=== PATIENT | male | born 1975 | race African-American/Black ===

== ENCOUNTER 2018-07-08 02:46 | Emergency (ER) | payer BC ==
[2018-07-08 03:19] VITALS: BP 150/76; PULSE 76; TEMP 98.8; BMI 31.5
--- NOTE | 2018-07-08 04:24 | PDOC ---
History of Present Illness - General Chief Complaint: Choking Sensation Stated Complaint: PAIN WHEN SWALLOWING Time Seen by Provider: 07/08/18 03:50 History Source: Patient Exam Limitations: No Limitations - History of Present Illness Initial Comments: 07/08/18 04:07 HISTORY OF PRESENT ILLNESS: 42-year-old male with past medical history of NIDDM and A. fib (not on AC) who presents emergency Department with foreign-body sensation in his throat after vomiting tonight. Patient states he had shrimp for dinner last night when he laid down began to experience some nausea and had one episode of vomiting. After vomiting several persistent feeling of food "stuck in his throat." The patient is been unable to relieve sensation by drinking water. Patient denies any shortness of breath or difficulty breathing. No recent travel or sick contacts. PAST MEDICAL HISTORY: see HPI SURGICAL HISTORY: Denies ALLERGIES: No known drug allergies REVIEW OF SYSTEMS General/Constitutional: Denies fever or chills. Denies weakness, weight change. HEENT: Denies change in vision. Denies ear pain or discharge. Denies sore throat. Cardiovascular: Denies chest pain or shortness of breath. Respiratory: Denies cough, wheezing, or hemoptysis. Gastrointestinal: Denies nausea, diarrhea or constipation. Denies rectal bleeding. Food bolus sensation in throat. Genitourinary: Denies dysuria, frequency, or change in urination. Musculoskeletal: Denies joint or muscle swelling or pain. Denies neck or back pain. Skin and breasts: Denies rash or easy bruising. Neurologic: Denies headache, vertigo, loss of consciousness, or loss of sensation. Psychiatric: Denies depression or anxiety. Endocrine: Denies increased thirst. Denies abnormal weight change. Hematologic/Lymphatic: Denies anemia, easy bleeding, or history of blood clots. Allergic/Immunologic: Denies hives or skin allergy. Denies latex allergy. PHYSICAL EXAM General Appearance: Well-appearing, appropriately dressed. No apparent distress , no intoxication. HEENT: EOMI, PERRLA, normal ENT inspection, normal voice, TMs normal, pharynx normal. No conjunctival pallor. No photophobia, scleral icterus. Neck: Supple. Trachea midline. No tenderness, rigidity, carotid bruit, stridor , lymphadenopathy, or thyromegaly. Respiratory/Chest: Lungs CTAB. No shortness of breath, chest tenderness, respiratory distress, accessory muscle use. No crackles, rales, rhonchi, stridor , wheezing, dullness Cardiovascular: RRR. S1, S2. No JVD, murmur, bradycardia, tachycardia. Vascular Pulses: Dorsalis-Pedis (R): 2+, Dorsalis-Pedis (L): 2+ Gastrointestinal/Abdominal: Normal bowel sounds. Abdomen soft, non-distended. No tenderness or rebound tenderness. No organomegaly, pulsatile mass, guarding, hernia, hepatomegaly, splenomegaly. Lymphatic: No adenopathy, tenderness. Musculoskeletal/Extremities: Normal inspection. FROM of all extremities, normal capillary refill. Pelvis Stable. No CVA tenderness. No tenderness to extremities, pedal edema, swelling, erythema or deformity. Integumentary: Appropriate color, dry, warm. No cyanosis, erythema, jaundice or rash Neurologic: refinery technician II-XII intact. Fully oriented, alert. Appropriate mood/affect. Motor strength 5/5. No appreciable EOM palsy, facial droop or sensory deficit. Past History - Past Medical History Allergies/Adverse Reactions: Allergies Allergy/AdvReac Type Severity Reaction Status Date / Time No Known Allergies Allergy Verified 07/08/18 03:06 - Suicide/Smoking/Psychosocial Hx Smoking History: Never smoked Have you smoked in the past 12 months: No Information on smoking cessation initiated: No Hx Alcohol Use: No Drug/Substance Use Hx: No *Physical Exam - Vital Signs Last Vital Signs Temp Pulse Resp BP Pulse Ox 98.8 F 76 20 150/76 95 07/08/18 03:06 07/08/18 03:06 07/08/18 03:06 07/08/18 03:06 07/08/18 03:06 Medical Decision Making - Medical Decision Making 07/08/18 04:28 A/P: 42-year-old male with food bolus sensation in throat Oropharynx clear without erythema or exudates. No drooling noted No stridor auscultated No change in voice Lungs clear to auscultation bilaterally CAT scan of the soft tissues of the neck to rule outs retained foreign bodies, reassess 07/08/18 06:05 CT as read by imaging precision dyer: No radiodense foreign bodies. Unremarkable tonsillar fossa, epiglottitis, thyroid gland and parotid and submandibular glands. Muco-periosteal thickening paranasal sinuses. Mastoid air cells clear. Results a CT relate the patient. Patient is able to swallow without any difficulties. I will discharge the patient home with recommendation for ENT follow-up. *DC/Admit/Observation/Transfer Diagnosis at time of Disposition: Foreign body sensation in throat - Discharge Dispostion Disposition: HOME Condition at time of disposition: Stable Decision to Admit order: No - Referrals Referrals: Chele Degroot MD [Staff Physician] - - Patient Instructions Additional Instructions: You've been given the phone number for Dr. Degroot who is an ENT specialist. If he continued to experience foreign-body sensation call for an appointment. Return to the emergency department [place]. Shortness of breath, inability to swallow, severe throat pain or any other concerns. - Post Discharge Activity
== END 2018-07-08 06:24 | disposition home or self-care (01) ==
LOC: JER 02:46
DX: R09.89 Other specified symptoms and signs involving the circulatory and respiratory systems (principal); I48.91 Unspecified atrial fibrillation; E11.9 Type 2 diabetes mellitus without complications; Z79.84 Long term (current) use of oral hypoglycemic drugs
CPT/HCPCS: 70490-TC; 99282-25

== ENCOUNTER 2020-04-05 01:38 | Inpatient (IN) | payer BC ==
[2020-04-05] MEDS ORDERED: SODIUM CHLORIDE 1,000 ML IV STA (02:07)
[2020-04-05 02:15] VITALS: BMI 31.5
--- NOTE | 2020-04-05 02:17 | PDOC ---
Attending Attestation - Resident Resident Name: Luis Hernandez - ED Attending Attestation I have performed the following: I have examined & evaluated the patient, The case was reviewed & discussed with the resident, I agree w/resident's findings & plan - HPI HPI: 04/05/20 02:29 Pt comes with rapid heart beat. Describes a funny feeling in his chest/heart. States that he knew he may be in rapid afib, as he was almost 2 years ago, when he was admitted to [facility]. At that time, he states he reverted to NSR in a day and a half with meds and rest on the floors. Pt considered getting a cardiac ablation. but decided against it. Pt has no other complaints at this time. He just drove down from [place]. - Physicial Exam PE: 04/05/20 02:29 Normal exam; agree with resident exam Only irregularly irreg rate. 04/05/20 04:59 luings clear; abd soft NT ND normal extremities; no edema no flank pain. - Medical Decision Making 04/05/20 03:14 CPK is elevated; Glc is elevated. 04/05/20 03:26 trop is normal 04/05/20 23:43 Pt will be admitted to [facility] for uncontrolled AFIB Discharge - Discharge Information Problems reviewed: Yes Clinical Impression/Diagnosis: Atrial fibrillation with RVR Condition: Improved - Follow up/Referral - Patient Discharge Instructions - Post Discharge Activity
--- NOTE | 2020-04-05 02:17 | PDOC ---
History of Present Illness - General Stated Complaint: ACTIVE AFIB Time Seen by Provider: 04/05/20 01:59 History Source: Patient Exam Limitations: No Limitations - History of Present Illness Initial Comments: 04/05/20 02:12 44 yo male pmh HTN, NIDDM, A fib (not on AC) presents to the ED for A fib. Pt states he felt chest palpitations today, checked his heart rate and noted it to be irregular, up to 130 at home, took 100 mg Metoprolol tonight (usually night time dose is 50 mg). Pt states he went into rapid afib 2 years ago, symptoms today are similar to that episode. States he has been drinking a lot o caffeine, alcohol, lack of sleep and increased stress over the last 1 week. Pt denies chest pain, SOB, abdominal pain, changes in bowel or bladder habits, F/C/N/V, recent travel, calf tenderness, sick contacts. Past History - Medical History Allergies/Adverse Reactions: Allergies Allergy/AdvReac Type Severity Reaction Status Date / Time No Known Allergies Allergy Verified 07/08/18 03:06 Home Medications: Ambulatory Orders Empagliflozin [Jardiance] 25 mg PO DAILY 04/05/20 Glimepiride 2 mg PO DAILY 04/05/20 Lisinopril 20 mg PO DAILY 04/05/20 Metformin HCl [Glucophage] 1,000 mg PO BID 04/05/20 Metoprolol Tartrate 50 mg PO BID 04/05/20 Nebivolol HCl [Bystolic] 10 mg PO DAILY 04/05/20 COPD: No Diabetes: Yes HTN: Yes - Immunization History Immunization Up to Date: Yes - Psycho-Social/Smoking History Smoking History: Never smoked Have you smoked in the past 12 months: No Review of Systems - Review of Systems Constitutional: Yes: Symptoms Reported HEENTM: Yes: Symptoms Reported Respiratory: Yes: Symptoms reported Cardiac (ROS): Yes: Symptoms Reported ABD/GI: Yes: Symptoms Reported : Yes: Symptoms Reported Musculoskeletal: Yes: Symptoms Reported Integumentary: Yes: Symptoms Reported Neurological: Yes: Symptoms reported *Physical Exam - Physical Exam General Appearance: Yes: Nourished, Appropriately Dressed. No: Apparent Distress HEENT: positive: EOMI Neck: positive: Supple. negative: Carotid bruit Respiratory/Chest: positive: Lungs Clear, Normal Breath Sounds. negative: Resp iratory Distress, Accessory Muscle Use, Rapid RR, Crackles, Rales, Rhonchi, Stridor, Wheezing Cardiovascular: positive: S1, S2, Irregularly Irregular. negative: Edema, JVD, Murmur Vascular Pulses: Dorsalis-Pedis (R): 4+, Doralis-Pedis (L): 4+ Gastrointestinal/Abdominal: positive: Flat, Soft. negative: Pulsatile Mass, Distended, Guarding, Rebound, Tenderness Musculoskeletal: negative: CVA Tenderness Extremity: positive: Normal Capillary Refill, Normal Inspection, Normal Range of Motion Integumentary: positive: Normal Color, Dry, Warm Neurologic: positive: Fully Oriented, Alert, Normal Mood/Affect, Normal Response ED Treatment Course - LABORATORY CBC & Chemistry Diagram: 04/05/20 02:11 04/05/20 02:17 - RADIOLOGY Radiology Studies Ordered: Category Date Time Status CHEST X-RAY PORTABLE* [RAD] Stat Radiology 04/05/20 02:06 Ordered Medical Decision Making - Medical Decision Making 04/05/20 02:17 44 yo male pmh HTN, NIDDM, A fib (not on AC) presents to the ED for A fib. Pt states he felt chest palpitations today, checked his heart rate and noted it to be irregular, up to 130 at home, took 100 mg Metoprolol tonight (usually night time dose is 50 mg). Pt states he went into rapid afib 2 years ago, symptoms today are similar to that episode. States he has been drinking a lot o caffeine, alcohol, lack of sleep and increased stress over the last 1 week. Pt denies chest pain, SOB, abdominal pain, changes in bowel or bladder habits, F/C/N/V, recent travel, calf tenderness, sick contacts. vitals stable, show irreg irreg, up to 120 BPM Will do cardiac work up including labs , EKG, CXR and treatment Fluids given, will reassess and give Metorpolol IV if rate is not controlled No improvement made after fluids. Pt given 5 mg push of metoprolol Pt to be admitted for continued cardiac monitoring and and treatment Labs WNL including trop Pt accepted for admission Discharge - Discharge Information Problems reviewed: Yes Clinical Impression/Diagnosis: Atrial fibrillation with RVR - Admission Yes - Follow up/Referral Referrals: ON STAFF,NOT [Primary Care Provider] - - Patient Discharge Instructions - Post Discharge Activity
[2020-04-05 02:30] LABS: BASO % 0.8 % (0-2.0); LYMPH % 32.1 % (8-40); MCH 29.6 pg (25.7-33.7); MCHC 33.3 g/dl (32.0-35.9); MEAN CELL VOLUME 88.7 fl (80-96); MONO % 7.2 % (3.8-10.2); NEUT % 58.9 % (42.8-82.8); PLATELET COUNT 209 K/MM3 (134-434); RBC 4.73 M/mm3 (4.00-5.60); RDW 13.4 % (11.9-15.9); WHITE BLOOD COUNT 9.1 K/mm3 (4.0-10.0)
[2020-04-05 02:57] LABS: ALBUMIN 4.4 g/dl (3.4-5.0); BILIRUBIN,TOTAL 0.6 mg/dL (0.2-1); BLOOD UREA NITROGEN 24.4 mg/dL (7-18); CALCIUM 9.6 mg/dL (8.5-10.1); CREATININE 1.2 mg/dL (0.55-1.3); MAGNESIUM 2.1 mg/dL (1.8-2.4); POTASSIUM 4.6 mmol/L (3.5-5.1); TOT PROT 7.8 g/dl (6.4-8.2)
[2020-04-05] MEDS ORDERED: METOPROLOL TARTRATE 5 MG/5 ML VIAL IVPUSH ONE (03:23)
[2020-04-05] MEDS ORDERED: METOPROLOL TARTRATE 5 MG/5 ML VIAL ONE (03:28)
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
[2020-04-05] MEDS: INSULIN SLIDING SCALE (NOVOLOG) 1 VIAL SQ SCH ×2 (08:25→13:26)
--- NOTE | 2020-04-05 09:12 | PN ---
Teaching Attending Note Name of Resident: Tanner Degroot ATTENDING PHYSICIAN STATEMENT I saw and evaluated the patient. I reviewed the resident's note and discussed the case with the resident. I agree with the resident's findings and plan as documented. SUBJECTIVE: Patient is a 44yom with Pmhx of NIDDM, HTN, and Paroxysmal atrial fibrillation (Not on AC) who presented to ED. for having chest pressure and jitteriness. As per patient he is on lopressor 50mg at home but took 100mg last night after he felt that he was in atrial fibrillation which did not solve his problem . Had a similar episode 2yrs ago. OBJECTIVE: Vital Signs Temperature 98.6 F 04/05/20 05:59 Pulse Rate 80 04/05/20 05:59 Respiratory Rate 18 04/05/20 05:59 Blood Pressure 119/74 04/05/20 05:59 O2 Sat by Pulse Oximetry (%) 98 04/05/20 05:59 PE: per resident's note CBCD WBC 9.1 K/mm3 (4.0-10.0) 04/05/20 02:11 RBC 4.73 M/mm3 (4.00-5.60) 04/05/20 02:11 Hgb 14.0 GM/dL (11.7-16.9) 04/05/20 02:11 Hct 42.0 % (35.4-49) 04/05/20 02:11 MCV 88.7 fl (80-96) 04/05/20 02:11 MCHC 33.3 g/dl (32.0-35.9) 04/05/20 02:11 RDW 13.4 % (11.9-15.9) 04/05/20 02:11 Plt Count 209 K/MM3 (134-434) 04/05/20 02:11 MPV 9.0 fl (7.5-11.1) 04/05/20 02:11 CMP Sodium 137 mmol/L (136-145) 04/05/20 02:17 Potassium 4.6 mmol/L (3.5-5.1) 04/05/20 02:17 Chloride 101 mmol/L (98-107) 04/05/20 02:17 Carbon Dioxide 30 mmol/L (21-32) 04/05/20 02:17 Anion Gap 6 MMOL/L (8-16) L 04/05/20 02:17 BUN 24.4 mg/dL (7-18) H 04/05/20 02:17 Creatinine 1.2 mg/dL (0.55-1.3) 04/05/20 02:17 Random Glucose 307 mg/dL (74-106) H 04/05/20 02:17 Calcium 9.6 mg/dL (8.5-10.1) 04/05/20 02:17 Total Bilirubin 0.6 mg/dL (0.2-1) 04/05/20 02:17 AST 32 U/L (15-37) 04/05/20 02:17 ALT 91 U/L (13-61) H 04/05/20 02:17 Alkaline Phosphatase 75 U/L (45-117) 04/05/20 02:17 Total Protein 7.8 g/dl (6.4-8.2) 04/05/20 02:17 Albumin 4.4 g/dl (3.4-5.0) 04/05/20 02:17 CARDIAC ENZYMES Creatine Kinase 528 U/L (26-308) H 04/05/20 02:17 Troponin I 0.02 ng/ml (0.00-0.05) 04/05/20 02:17 Current Medications Generic Name Dose Route Start Last Admin Trade Name Mary PRN Reason Stop Dose Admin Apixaban 5 mg 04/05/20 10:00 Eliquis - PO BID [facility] Insulin Aspart 1 vial 04/05/20 07:00 04/05/20 08:25 Novolog Vial Sliding Scale - SQ 4 unit ACHS [facility] Administration Protocol Lisinopril 20 mg 04/05/20 10:00 Prinivil PO DAILY [facility] Metoprolol Tartrate 50 mg 04/05/20 10:00 Lopressor - PO BID [facility] Nebivolol 10 mg 04/05/20 10:00 Bystolic - PO DAILY [facility] Home Medications Medication Instructions Recorded Empagliflozin [Jardiance] 25 mg PO DAILY 04/05/20 Glimepiride 2 mg PO DAILY 04/05/20 Lisinopril 20 mg PO DAILY 04/05/20 Metformin HCl [Glucophage] 1,000 mg PO BID 04/05/20 Metoprolol Tartrate 50 mg PO BID 04/05/20 Nebivolol HCl [Bystolic] 10 mg PO DAILY 04/05/20 ASSESSMENT AND PLAN: This patient is a 44yom with PMhx of NIDDM, HTN, and Paroxysmal arial fibrillation (Not on AC) , admitted for having Afib with rvr, chest pain and jitteriness. #Atrial Fibrillation with RVR rate of 120 with [id number] 2 , was started on Eliquis 5mg bid by the night team, echo ordered, cardio consult appreciated. TSh ordered, echo ordered but patient has a branch controller and will follow up with him dr Jimenez , continue bystolic and lopressor. #HTN contolled continue lisinopril, Bystolic #NIDDM continue home meds and follow up with Dr Sanchez residential carpenter within a week, continue home meds according to your doctor. Invokana, Jarjimena, Metformin, an Glimiperide #Hypertrigecedemia: added Lipitor 40mg po hs , with diet modifications, repeat levels in a month period. DVT ppx: Eliquis
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
--- NOTE | 2020-04-05 09:21 | EKG ---
Test Reason : Blood Pressure : / mmHG Vent. Rate : 105 BPM Atrial Rate : 220 BPM P-R Int : 000 ms QRS Dur : 076 ms QT Int : 342 ms P-R-T Axes : 000 052 007 degrees QTc Int : 452 ms ATRIAL FIBRILLATION WITH RAPID VENTRICULAR RESPONSE NONSPECIFIC ST AND T WAVE ABNORMALITY ABNORMAL ECG NO PREVIOUS ECGS AVAILABLE Confirmed by ABRAHAM MOTA MD ([id number]) on 04/05/2020 9:20:40 AM Referred By: Confirmed By:ABRAHAM MOTA MD
[2020-04-05] MEDS ORDERED: NEBIVOLOL 10 MG TABLET (FP) PO SCH (10:00)
[2020-04-05] MEDS ORDERED: METOPROLOL TARTRATE 50 MG TABLET (FP) PO SCH (10:00)
[2020-04-05] MEDS ORDERED: LISINOPRIL 20 MG TABLET (FP) PO SCH (10:00)
[2020-04-05] MEDS ORDERED: APIXABAN 5 MG TABLET PO SCH (10:00)
[2020-04-05 10:10] VITALS: TEMP 98.2
[2020-04-05] MEDS ORDERED: PT OWN MED DRAWER 7, Y5N ONE (10:11)
[2020-04-05] MEDS ORDERED: LISINOPRIL 20 MG TABLET (FP) ONE (10:12)
[2020-04-05] MEDS ORDERED: METOPROLOL TARTRATE 50 MG TABLET (FP) ONE (10:12)
[2020-04-05] MEDS ORDERED: APIXABAN 5 MG TABLET ONE (10:12)
[2020-04-05 11:32] LABS: BASO % 1.2 % (0-2.0); EOS % 1.9 % (0-4.5); HEMATOCRIT 40.1 % (35.4-49); LYMPH % 39.5 % (8-40); MCH 29.1 pg (25.7-33.7); MCHC 32.5 g/dl (32.0-35.9); MEAN CELL VOLUME 89.6 fl (80-96); MONO % 8.6 % (3.8-10.2); NEUT % 48.8 % (42.8-82.8); PLATELET COUNT 185 K/MM3 (134-434); RBC 4.48 M/mm3 (4.00-5.60); RDW 13.7 % (11.9-15.9); WHITE BLOOD COUNT 8.2 K/mm3 (4.0-10.0)
[2020-04-05 11:39] LABS: INR 0.98 (0.83-1.09); PROTHROMBIN TIME (PATIENT) 11.6 SEC (9.7-13.0)
[2020-04-05 11:42] LABS: ACTIVATED PTT 29.7 SECONDS (25.2-36.5)
[2020-04-05 12:03] LABS: ALBUMIN 3.9 g/dl (3.4-5.0); BILIRUBIN,TOTAL 0.4 mg/dL (0.2-1); BLOOD UREA NITROGEN 22.6 mg/dL (7-18); CALCIUM 9.1 mg/dL (8.5-10.1); PHOSPHOROUS 3.4 mg/dL (2.5-4.9); POTASSIUM 4.8 mmol/L (3.5-5.1)
[2020-04-05] MEDS ORDERED: PNEUMOC 13-VAL CONJ-DIP CRM/PF 0.5 ML DISP.SYRIN IM ONE (15:37)
[2020-04-05 15:51] VITALS: BP 138/86; PULSE 86
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
[2020-04-05] MEDS ORDERED: PNEUMOCOCCAL 23 VACCINE 0.5 ML VIAL IM ONE (16:00)
== END 2020-04-05 16:21 | disposition home or self-care (01) | DRG 201 ==
LOC: JER 01:38 → JERBED 05:14
PROVIDERS: ADMIT Internal Medicine; ATTEND Internal Medicine
DX: I48.0 Paroxysmal atrial fibrillation (principal); I10 Essential (primary) hypertension; E11.65 Type 2 diabetes mellitus with hyperglycemia; E66.9 Obesity, unspecified; Z68.31 Body mass index [BMI] 31.0-31.9, adult; F17.210 Nicotine dependence, cigarettes, uncomplicated; Z72.89 Other problems related to lifestyle; F15.90 Other stimulant use, unspecified, uncomplicated; E78.1 Pure hyperglyceridemia
CPT/HCPCS: 36415; 71045-TC-FY; 80053; 80061; 82550; 82553; 82962; 83036; 83721; 83735; 84100; 84443; 84484; 85025; 85610; 85730; 90732; 93005; 93010; 99285-25; G0009; U0003